=== PATIENT | female | born 1995 | race Hispanic/Latino ===

== ENCOUNTER → 2022-07-29 | Outpatient (CLI) | payer OTHER ==
[2022-07-29 13:20] LABS: HEMATOCRIT 32.1 % (36.0-47.0); HEMOGLOBIN 10.7 g/dl (12.0-15.5); MEAN CORPUSCULAR HEMOGLOBIN 28.9 pg (27.0-33.0); MEAN CORPUSCULAR HGB CONC 33.3 g/dl (32.0-36.5); MEAN CORPUSCULAR VOLUME 86.8 fl (80.0-96.0); PLATELET COUNT, AUTOMATED 370 10^3/uL (150-450); WHITE BLOOD COUNT 9.7 10^3/uL (4.0-10.0)
[2022-07-29 13:39] LABS: GLUCOSE CHALLENGE TEST 1 HOUR 96 MG/DL (LESS THAN 140)
[2022-07-29 14:10] LABS: HIV 1&2 SCREEN NEGATIVE (NEGATIVE)
[2022-07-29 15:15] LABS: GC DNA AMPLIFICATION NEGATIVE (NEGATIVE)
== END ==
LOC: M PLALAB 11:10
PROVIDERS: ATTEND Advanced Practice Midwife
DX: Z34.83 Encounter for supervision of other normal pregnancy, third trimester (principal)

== ENCOUNTER → 2022-08-25 | Outpatient (REF) | payer OTHER | LOC: M PLALAB 14:21 | PROVIDERS: ATTEND Advanced Practice Midwife | DX: Z36.85 Encounter for antenatal screening for Streptococcus B (principal) ==

== ENCOUNTER 2022-09-29 01:10 | Inpatient (IN) | payer OTHER ==
[2022-09-29] VITALS (82 sets, daily range): BP systolic 94–146; BP diastolic 48–90; O2SAT 96
[~2022-09-29] VITALS: Ht 162.6 cm; Wt 82.1 kg
[2022-09-29 03:46] LABS: HEMATOCRIT 30.6 % (36.0-47.0); HEMOGLOBIN 9.7 g/dl (12.0-15.5); MEAN CORPUSCULAR HEMOGLOBIN 25.5 pg (27.0-33.0); MEAN CORPUSCULAR HGB CONC 31.7 g/dl (32.0-36.5); MEAN CORPUSCULAR VOLUME 80.5 fl (80.0-96.0); PLATELET COUNT, AUTOMATED 358 10^3/uL (150-450); WHITE BLOOD COUNT 16.2 10^3/uL (4.0-10.0)
[2022-09-29] MEDS ORDERED: LACTATED RINGER'S 1000 ML IV ONE (03:55)
[2022-09-29] MEDS ORDERED: TUMS500C PO (03:58)
[2022-09-29] MEDS ORDERED: PRENTAB9 PO (03:58)
[2022-09-29] MEDS ORDERED: OXYTOCIN DRIP 30 UNITS in IV 1 EA IV SCH (04:00)
[2022-09-29] MEDS: LR 1,000 ML IV SCH ×2 (04:38→16:17)
[2022-09-29] MEDS ORDERED: EPIDURAL/PCA KEYS XX PRN (05:05)
[2022-09-29] MEDS ORDERED: ONDANSETRON 4MG 2ML VIAL IV PRN (05:05)
[2022-09-29] MEDS ORDERED: diphenhydrAMINE 50MG/ML VIAL IV PRN (05:05)
[2022-09-29] MEDS ORDERED: LR 500 ML IV PRN (05:05)
[2022-09-29] MEDS ORDERED: NALOXONE INJ 0.4MG/1ML VIAL IV PRN (05:05)
[2022-09-29] MEDS: FENTANYL/ROPIVACAINE/NACL BAG 100 ML EPIDURAL SCH ×2 (05:26→13:52)
[2022-09-29] MEDS: ePHEDrine SULFATE 25 MG/5 ML(5MG/ML) SYRINGE IVP PRN ×3 (06:48→06:56)
[2022-09-29] MEDS ORDERED: METHYLERGONOVINE MALEATE 0.2 MG TAB PO PRN (18:35)
[2022-09-29] MEDS ORDERED: RHOGAM 300MCG (1500IU) INJ IM SCH (18:35)
[2022-09-29] MEDS ORDERED: DIBUCAINE 1% OINTMENT 30GM TOP PRN (18:35)
[2022-09-29] MEDS ORDERED: ACETAMINOPHEN TAB 650MG DOSE (2X325MG) PO PRN (18:35)
[2022-09-29] MEDS ORDERED: DOCUSATE SODIUM 100MG CAPSULE PO PRN (18:35)
[2022-09-29] MEDS ORDERED: IBUPROFEN 600MG TAB PO PRN (18:35)
[2022-09-29] MEDS ORDERED: IBUPROFEN 800 MG TAB PO PRN (18:35)
[2022-09-30 06:00] VITALS: BP 114/64; O2SAT 96
[2022-09-30] MEDS: PRENATAL VITAMINS CHEWABLE TABLET PO SCH (08:05)
[2022-09-30] MEDS: ACETAMINOPHEN 500 MG TAB PO PRN (17:30)
[2022-09-30 18:00] VITALS: BP 130/69
[2022-10-01] MEDS: ACETAMINOPHEN 500 MG TAB PO PRN (02:11)
[2022-10-01 06:00] VITALS: BP 111/65; O2SAT 99
[2022-10-01] MEDS ORDERED: MEASLES,MUMPS,RUBELLA VACCINE INJ (MMR-II) SC.IMMUN ONE (09:00)
[2022-10-01] MEDS: PRENATAL VITAMINS CHEWABLE TABLET PO SCH (10:23)
== END 2022-10-01 12:30 | disposition home or self-care (01) | DRG 807 ==
LOC: M LDO 01:10 → M LDI 02:00 → M OBS 19:40
PROVIDERS: ADMIT Advanced Practice Midwife; ATTEND Specialist
PROC: 10E0XZZ Delivery of Products of Conception, External Approach (ICD-10-PCS; principal; 2022-09-29)
PROC: 10907ZC Drainage of Amniotic Fluid, Therapeutic from Products of Conception, Via Natural or Artificial Opening (ICD-10-PCS; 2022-09-29)
DX: O48.0 Post-term pregnancy (principal); Z37.0 Single live birth; Z3A.41 41 weeks gestation of pregnancy